=== PATIENT | male | born 1955 | race Caucasian/White ===

== ENCOUNTER 2018-03-24 12:59 | Inpatient (IN) | payer OTHER ==
[2018-03-24 14:14] LABS: Basophils % (A) 0 %; Eosinophils % (A) 0 %; HGB 17.2 gm/dL (13.0-17.5); Lymphocytes # (A) 0.6 k/uL (1.0-4.8); Lymphocytes % (A) 4 %; MCH 29.5 pg (25.0-35.0); MCV 89.4 fL (80.0-100.0); Mean Platelet Volume 7.9; Monocytes # (A) 0.7 k/uL (0-1.0); Monocytes % (A) 5 %; Neutrophils # (A) 14.2 k/uL (1.3-7.7); Neutrophils % (A) 90 %; Platelet Count 245 k/uL (150-450); RBC 5.81 m/uL (4.30-5.90); RDW 13.3 % (11.5-15.5); WBC 15.7 k/uL (3.8-10.6)
[2018-03-24 14:16] LABS: Appearance,Urine Cloudy (Clear); Bilirubin,Urine Negative (Negative); Blood,Urine Large (Negative); Color,Urine Dark Brown; Glucose,Urine (UA) Negative (Negative); Ketones,Urine Trace (Negative); Leukocyte Esterase,Urine Negative (Negative); Mucus,Urine Occasional /hpf; Nitrite,Urine Negative (Negative); Protein,Urine 1+ (Negative); RBC,Urine >182 /hpf (0-5); Specific Gravity,Urine 1.026 (1.001-1.035); Urobilinogen,Urine <2.0 mg/dL (<2.0); WBC,Urine 16 /hpf (0-5)
[2018-03-24 14:23] LABS: Albumin 4.6 g/dL (3.5-5.0); Calcium 9.9 mg/dL (8.4-10.2); Potassium 4.7 mmol/L (3.5-5.1); Total Bilirubin 0.6 mg/dL (0.2-1.3); Total Protein 7.8 g/dL (6.3-8.2)
[2018-03-24] MEDS ORDERED: KETOROLAC 30 MG/ML 1 ML VIAL IVP STA (15:21)
[2018-03-24] MEDS ORDERED: METOCLOPRAMIDE 5 MG/ML 2 ML VIAL IVP STA (15:21)
[2018-03-24] MEDS ORDERED: SODIUM CHLORIDE 0.9% 500 ML IV STA (15:22)
--- NOTE | 2018-03-24 15:24 | ED ---
General Adult HPI - General Chief complaint: Abdominal Pain Stated complaint: Right flank pain Time Seen by Provider: 03/24/18 15:18 Source: patient, RN notes reviewed Mode of arrival: ambulatory Limitations: no limitations - History of Present Illness Initial comments: Patient is a pleasant 62-year-old male presenting to the emergency Department with right posterior flank pain. Onset was sudden this morning. Discomfort has been steady and somewhat severe. Patient has had some chills. Patient has had nausea however no vomiting. Patient does feel slightly constipated. Patient did take a laxative prior to onset of symptoms. No fevers. No dysuria or hematuria. No history of similar symptoms previously. Discomfort is not positional. - Related Data Home Medications Medication Instructions Recorded Confirmed Aspirin [Adult Low Dose Aspirin EC] 81 mg PO HS 03/24/18 03/24/18 Finasteride [Propecia] 1 mg PO DAILY 03/24/18 03/24/18 Allergies Allergy/AdvReac Type Severity Reaction Status Date / Time shellfish derived [Shellfish] Allergy Rash/Hives Verified 03/24/18 16:14 WINE AdvReac Unknown Uncoded 03/24/18 16:14 Review of Systems ROS Statement: Those systems with pertinent positive or pertinent negative responses have been documented in the HPI. ROS Other: All systems not noted in ROS Statement are negative. Constitutional: Reports: chills. Denies: fever Eyes: Denies: eye pain ENT: Denies: ear pain Respiratory: Denies: cough, dyspnea Cardiovascular: Denies: chest pain Endocrine: Denies: fatigue Gastrointestinal: Reports: nausea. Denies: abdominal pain, vomiting Genitourinary: Denies: dysuria, hematuria Musculoskeletal: Reports: back pain (Right flank) Skin: Denies: rash Neurological: Denies: weakness Past Medical History Past Medical History: No Reported History History of Any Multi-Drug Resistant Organisms: None Reported Past Surgical History: Adenoidectomy, Tonsillectomy Past Psychological History: No Psychological Hx Reported Smoking Status: Never smoker Past Alcohol Use History: None Reported Past Drug Use History: None Reported General Exam Limitations: no limitations General appearance: alert, in no apparent distress Head exam: Present: atraumatic Eye exam: Present: normal appearance, PERRL ENT exam: Present: normal oropharynx Neck exam: Present: normal inspection Respiratory exam: Present: normal lung sounds bilaterally Cardiovascular Exam: Present: regular rate, normal rhythm Expanded Peripheral pulses: 2+: Posterior Tibialis (R), Posterior Tibialis (L) GI/Abdominal exam: Present: soft. Absent: tenderness Extremities exam: Present: normal inspection. Absent: pedal edema, calf tenderness Back exam: Present: normal inspection. Absent: tenderness, CVA tenderness (R) Neurological exam: Present: alert Psychiatric exam: Present: normal affect, normal mood Skin exam: Present: normal color Course Vital Signs 03/24/18 13:28 Temperature 98.2 F Pulse Rate 79 Respiratory 20 Rate Blood Pressure 154/79 O2 Sat by Pulse 97 Oximetry Medical Decision Making - Medical Decision Making Patient reevaluated and resting comfortably in bed. Patient updated on results and plan. Dr. Keith has been paged for admission for hospital call. - Lab Data Result diagrams: 03/24/18 13:50 03/24/18 13:50 Lab Results 03/24/18 03/24/18 03/24/18 Range/Units 13:50 13:50 13:50 WBC 15.7 H (3.8-10.6) k/uL RBC 5.81 (4.30-5.90) m/uL Hgb 17.2 (13.0-17.5) gm/dL Hct 52.0 (39.0-53.0) % MCV 89.4 (80.0-100.0) fL MCH 29.5 (25.0-35.0) pg MCHC 33.0 (31.0-37.0) g/dL RDW 13.3 (11.5-15.5) % Plt Count 245 (150-450) k/uL Neutrophils % 90 % Lymphocytes % 4 % Monocytes % 5 % Eosinophils % 0 % Basophils % 0 % Neutrophils # 14.2 H (1.3-7.7) k/uL Lymphocytes # 0.6 L (1.0-4.8) k/uL Monocytes # 0.7 (0-1.0) k/uL Eosinophils # 0.0 (0-0.7) k/uL Basophils # 0.0 (0-0.2) k/uL Sodium 140 (137-145) mmol/L Potassium 4.7 (3.5-5.1) mmol/L Chloride 104 (98-107) mmol/L Carbon Dioxide 28 (22-30) mmol/L Anion Gap 8 mmol/L BUN 21 H (9-20) mg/dL Creatinine 1.17 (0.66-1.25) mg/dL Est GFR (CKD-EPI)AfAm 78 (>60 ml/min/1.73 sqM) Est GFR (CKD-EPI)NonAf 67 (>60 ml/min/1.73 sqM) Glucose 125 H (74-99) mg/dL Calcium 9.9 (8.4-10.2) mg/dL Total Bilirubin 0.6 (0.2-1.3) mg/dL AST 29 (17-59) U/L ALT 38 (21-72) U/L Alkaline Phosphatase 63 (38-126) U/L Total Protein 7.8 (6.3-8.2) g/dL Albumin 4.6 (3.5-5.0) g/dL Amylase 60 (30-110) U/L Lipase 97 (23-300) U/L Urine Color Dark Brown Urine Appearance Cloudy (Clear) Urine pH 5.0 (5.0-8.0) Ur Specific Pyatt 1.026 (1.001-1.035) Urine Protein 1+ H (Negative) Urine Glucose (UA) Negative (Negative) Urine Ketones Trace H (Negative) Urine Blood Large H (Negative) Urine Nitrite Negative (Negative) Urine Bilirubin Negative (Negative) Urine Urobilinogen <2.0 (<2.0) mg/dL Ur Leukocyte Esterase Negative (Negative) Urine RBC >182 H (0-5) /hpf Urine WBC 16 H (0-5) /hpf Urine WBC Clumps Occasional H (None) /hpf Urine Mucus Occasional H (None) /hpf - Radiology Data Radiology results: image reviewed (Computed tomography scan abdomen and pelvis does show 4 mm stone in the right UVJ. No addition there is diverticulitis with abscess formation up to 2 cm.) Disposition Clinical Impression: Ureterolithiasis, Sigmoid diverticulitis Disposition: ADMITTED IP TO THIS HOSP Is patient prescribed a controlled substance at d/c from ED?: No Referrals: None,Stated [Primary Care Provider] - 1-2 days Decision Time: 16:18
--- NOTE | 2018-03-24 15:58 | CT ---
EXAMINATION TYPE: CT abdomen pelvis wo con DATE OF EXAM: 03/24/2018 HISTORY: Right flank pain CT DLP: 1213 mGycm. Automated Exposure Control for Dose Reduction was Utilized. TECHNIQUE: CT scan of the abdomen and pelvis is performed without oral or IV contrast. COMPARISON: NONE FINDINGS: Within the limitations of a non-contrast study, the following observations are made. LUNG BASES: Dependent atelectasis right lung base is present. Focal coronary artery calcification LAD axial image 1 LIVER/GB: No significant abnormality is appreciated. PANCREAS: No significant abnormality is seen. SPLEEN: No significant abnormality is seen. ADRENALS: No significant abnormality is seen. KIDNEYS: There is 5 mm calculus lower pole level left kidney on axial image 78. Nonspecific subcentim eter hyperdense focus could reflect tiny hemorrhagic cyst mid pole level left kidney axial image 75 t o small to definitively characterize. There is mild right-sided pyelocaliectasis and diffuse hydroure ter due to 4 mm calculus at left UVJ axial image 150. No left-sided hydronephrosis is present. A few scattered pelvic phleboliths are present. BOWEL: Slightly suboptimal evaluation of bowel due to lack of enteric contrast. There is no suspiciou s small or large bowel dilatation. Normal-appearing appendix is seen inferiorly from base of cecum. D iverticula are seen in the left and sigmoid colon. There is moderate fat stranding in the anterior mi d abdomen at level of proximal to mid mid sigmoid colon consistent with acute diverticulitis. In samuel tion there is thick walled fluid collection with air-fluid level with intraluminal component measurin g roughly 2.1 x 1.0 cm coronal image 48 consistent with small peridiverticular abscess. GENITAL ORGANS: Some central zone calcifications are seen in nonenlarged prostate gland. LYMPH NODES: No greater than 1cm abdominal or pelvic lymph nodes are appreciated. OSSEOUS STRUCTURES: There is moderate multilevel disc space narrowing and vacuum disc phenomenon thro ughout the lumbar spine with posterior spur disc complexes effacing anterior thecal sac at several le vels. OTHER: There is large left inguinal hernia containing fat and tiny portion of sigmoid colon. There is smaller fat-containing right inguinal hernia. 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 IMPRESSION: 1. There is 4 mm calculus at right UVJ causing mild right-sided hydronephrosis. 2. There is moderate acute diverticulitis centered in the anterior mid pelvis at level of proximal to mid sigmoid colon with small adjacent peridiverticular abscess noted.
[2018-03-24] MEDS ORDERED: HYDROmorphone 1 MG/ML 1 ML SYRINGE IVP PRN (16:18)
[2018-03-24] MEDS ORDERED: NALOXONE 0.4 MG/ML 1 ML VIAL IV PRN (16:18)
[2018-03-24] MEDS ORDERED: LEVOFLOXACIN 750MG-D5W PMX 750 MG in DEXTROSE/WATER 1 150ML.BAG IVPB STA (16:21)
[2018-03-24] MEDS ORDERED: LEVOFLOXACIN 750MG-D5W PMX 750 MG in DEXTROSE/WATER 1 150ML.BAG IVPB SCH (16:30)
[2018-03-24] MEDS: SODIUM CHLORIDE 0.9% 1,000 ML IV SCH (16:38)
[2018-03-24] MEDS: metroNIDAZOLE-NS PMX 500 MG in SALINE 1 100ML.BAG IVPB SCH (20:03)
[2018-03-24 20:22] VITALS: BMI 30.2
[2018-03-24] MEDS: PANTOPRAZOLE 40 MG/10 ML VIAL IV SCH (21:36)
[2018-03-24] MEDS ORDERED: TEMAZEPAM 15 MG CAP PO PRN (23:09)
[2018-03-24] MEDS ORDERED: HYDROcodone/APAP 5-325MG 1 EACH TAB PO PRN (23:09)
[2018-03-24] MEDS ORDERED: ALPRAZolam 0.25 MG TAB PO PRN (23:09)
[2018-03-24] MEDS ORDERED: ACETAMINOPHEN TAB 500 MG TAB PO PRN (23:09)
[2018-03-25] MEDS: metroNIDAZOLE-NS PMX 500 MG in SALINE 1 100ML.BAG IVPB SCH ×5 (00:05→23:23)
[2018-03-25] MEDS: PIPERACILLIN-TAZOBACTAM 3.375 GM in DEXTROSE/WATER 1 50ML.BAG IVPB SCH ×4 (01:08→23:23)
[2018-03-25] MEDS: SODIUM CHLORIDE 0.9% 1,000 ML IV SCH ×4 (06:08→23:23)
--- NOTE | 2018-03-25 07:57 | HP ---
HISTORY AND PHYSICAL DATE OF ADMISSION: 03/24/2018 CHIEF COMPLAINT: Abdominal pain and right flank pain. HISTORY OF PRESENT ILLNESS: This 62-year-old gentleman with a past medical history of no significant medical history medical illnesses excluding adenoidectomy and tonsillectomy, from [place]. The patient was apparently camping and the patient had right flank pain and the patient came to [facility] and admitted for further evaluation and treatment. The patient initially had right posterior pain. It was sudden onset. The patient was concerned about urolithiasis. The CT scan of the abdomen and pelvis was done which showed a 4 mm calculus in the right UV junction causing right-sided hydronephrosis, also moderate acute diverticulitis in the anterior mid pelvis level of approximately mid sigmoid colon with small adjacent peridiverticular abscess noted. The patient admitted for further evaluation and treatment. There is no history of fever, rigors or chills. No history of headache, loss consciousness or seizures at this time. PAST MEDICAL HISTORY: Adenoidectomy, tonsillectomy. MEDICATIONS: Prior to admission: 1. Propecia 1 mg p.o. daily. 2. Ecotrin 81 mg q.h.s. ALLERGIES: SHELLFISH AND WINE. FAMILY HISTORY: History of diabetes in the family. SOCIAL HISTORY: No history of smoking. Occasional alcohol intake. REVIEW OF SYSTEMS: ENT: No diminished vision, no diminished hearing. CARDIOVASCULAR: No angina or palpitations. RESPIRATION: No cough or hemoptysis. GI as mentioned earlier. as mentioned earlier. CENTRAL NERVOUS SYSTEM: No numbness or weakness. ALLERGY/IMMUNOLOGY: As mentioned earlier. MUSCULOSKELETAL: As mentioned earlier. HEMATOLOGY/ONCOLOGY: No history of anemia. ENDOCRINE: No history of diabetes or hypothyroidism. CONSTITUTIONAL: As mentioned. Dermatology: Negative. Rheumatology: Negative. Psychiatry: As mentioned earlier. PHYSICAL EXAMINATION: Alert, oriented times three, pulse 99, blood pressure 130/70, respiration 18, temperature 98.2, pulse ox 98 percent on room air. HEENT: Conjunctivae normal. Oral mucosa moist. Neck is no jugular venous distention. No carotid bruit. No lymph node enlargement. Cardiovascular systems: S1, S2 muffled. Respirations: Breath sounds diminished in the bases. No rhonchi and no crackles. ABDOMEN: Soft, nontender. No mass palpable. No guarding. No rigidity. LEGS no edema. No swelling. NERVOUS SYSTEM: Higher functions as mentioned earlier. Moves all four extremities. No focal motor or sensory deficits. Lymphatics: No lymph nodes palpable in the neck, axillae or groin. Skin: No ulcer, rash or bleeding. LABS: WBC 15.7 and glucose 125. UA noted. ASSESSMENT: 1. Acute diverticulitis with small peridiverticular abscess. 2. Increased WBC. 3. 4 mm calculus in the right UV junction with right-sided mild hydronephrosis. 4. Increased random blood sugar. 5. Increased WBC. 6. History of adenoidectomy, tonsillectomy. RECOMMENDATIONS AND DISCUSSION: In this 62-year-old gentleman who presented with multiple complex medical issues, we will monitor the patient closely. Continue the current medications. Continue symptomatic treatment. Otherwise, at this time, I recommend broad-spectrum IV antibiotics and surgical consultation. We will continue the pain medication. DVT prophylaxis. Continue to monitor. Guarded prognosis because of multiple complex medical issues. Further recommendations to follow. We will monitor the white count serially. MMODL / IJN: [id number] /
[2018-03-25 08:02] LABS: Basophils % (A) 0 %; Eosinophils % (A) 0 %; HCT 43.4 % (39.0-53.0); HGB 14.7 gm/dL (13.0-17.5); Lymphocytes # (A) 0.4 k/uL (1.0-4.8); Lymphocytes % (A) 3 %; MCH 30.3 pg (25.0-35.0); MCHC 33.9 g/dL (31.0-37.0); MCV 89.4 fL (80.0-100.0); Mean Platelet Volume 7.8; Monocytes # (A) 0.8 k/uL (0-1.0); Monocytes % (A) 7 %; Neutrophils # (A) 10.8 k/uL (1.3-7.7); Neutrophils % (A) 89 %; Platelet Count 180 k/uL (150-450); RBC 4.86 m/uL (4.30-5.90); RDW 13.4 % (11.5-15.5); WBC 12.1 k/uL (3.8-10.6)
[2018-03-25] MEDS: PANTOPRAZOLE 40 MG/10 ML VIAL IV SCH (08:03)
[2018-03-25] MEDS: HEPARIN SODIUM,PORCINE 5,000 UNIT/ML 1 ML VIAL SQ SCH ×2 (08:04→21:34)
[2018-03-25 08:06] LABS: Calcium 8.5 mg/dL (8.4-10.2); Potassium 4.5 mmol/L (3.5-5.1)
[2018-03-25] MEDS: HYDROmorphone 1 MG/ML 1 ML SYRINGE IVP PRN ×2 (09:36→12:25)
[2018-03-25] MEDS ORDERED: KETOROLAC 30 MG/ML 1 ML VIAL IVP PRN (11:21)
[2018-03-25] MEDS ORDERED: KETOROLAC 30 MG/ML 1 ML VIAL IVP STA (11:21)
--- NOTE | 2018-03-25 14:25 | P.GSCN ---
History of Present Illness Consult date: 03/25/18 History of present illness: The patient is a pleasant 62-year-old gentleman from [place] passing through [place] when he developed severe left ureteral colic. He presented emergency room was evaluated and found to have a 45 mm obstructing left ureterovesical scope junction calculus. He is admitted to the hospital for pain control. He continues to have discomfort requiring both Toradol and morphine. This is the first stone the patient is ever had. He does have another stone in the left lower pole the kidney. There is no other urologic history. There is no fever Or chills and his urine is not infected. There is a question whether he has diverticulitis. Review of Systems All systems: negative Past Medical History Past Medical History: No Reported History History of Any Multi-Drug Resistant Organisms: None Reported Past Surgical History: Adenoidectomy, Tonsillectomy Past Psychological History: No Psychological Hx Reported Smoking Status: Never smoker Past Alcohol Use History: None Reported Past Drug Use History: None Reported - Past Family History Mother Family Medical History: Diabetes Mellitus Father Family Medical History: Diabetes Mellitus Medications and Allergies Home Medications Medication Instructions Recorded Confirmed Type Aspirin [Adult Low Dose Aspirin EC] 81 mg PO HS 03/24/18 03/24/18 History Finasteride [Propecia] 1 mg PO DAILY 03/24/18 03/24/18 History Allergies Allergy/AdvReac Type Severity Reaction Status Date / Time shellfish derived [Shellfish] Allergy Rash/Hives Verified 03/24/18 16:14 WINE AdvReac Unknown Uncoded 03/24/18 16:14 Surgical - Exam Vital Signs Temp Pulse Resp BP Pulse Ox 98.2 F 79 20 154/79 97 03/24/18 13:28 03/24/18 13:28 03/24/18 13:28 03/24/18 13:28 03/24/18 13:28 - General well developed, well nourished, moderate distress - Eyes PERRL - ENT no hearing loss - Neck no masses, trachea midline - Respiratory normal expansion, normal respiratory effort - Cardiovascular Rhythm: regular - Abdomen Abdomen: soft, non tender - Genitourinary normal penis with no external lesions, testicles present - Neurologic normal coordination, normal sensation - Musculoskeletal normal gait, normal posture - Psychiatric oriented to time, oriented to person, oriented to place, speech is normal, memory intact Results - Labs 03/25/18 07:27 03/25/18 07:27 Abnormal Lab Results - Last 24 Hours (Table) 03/24/18 03/24/18 03/25/18 Range/Units 13:50 13:50 07:27 WBC 15.7 H 12.1 H (3.8-10.6) k/uL Neutrophils # 14.2 H 10.8 H (1.3-7.7) k/uL Lymphocytes # 0.6 L 0.4 L (1.0-4.8) k/uL BUN 21 H (9-20) mg/dL Creatinine (0.66-1.25) mg/dL Glucose 125 H (74-99) mg/dL 03/25/18 Range/Units 07:27 WBC (3.8-10.6) k/uL Neutrophils # (1.3-7.7) k/uL Lymphocytes # (1.0-4.8) k/uL BUN (9-20) mg/dL Creatinine 1.71 H (0.66-1.25) mg/dL Glucose 108 H (74-99) mg/dL Diabetes panel 03/24/18 03/25/18 Range/Units 13:50 07:27 Sodium 140 138 (137-145) mmol/L Potassium 4.7 4.5 (3.5-5.1) mmol/L Chloride 104 107 (98-107) mmol/L Carbon Dioxide 28 24 (22-30) mmol/L BUN 21 H 19 (9-20) mg/dL Creatinine 1.17 1.71 H (0.66-1.25) mg/dL Glucose 125 H 108 H (74-99) mg/dL Calcium 9.9 8.5 (8.4-10.2) mg/dL AST 29 (17-59) U/L ALT 38 (21-72) U/L Alkaline Phosphatase 63 (38-126) U/L Total Protein 7.8 (6.3-8.2) g/dL Albumin 4.6 (3.5-5.0) g/dL Calcium panel 03/24/18 03/25/18 Range/Units 13:50 07:27 Calcium 9.9 8.5 (8.4-10.2) mg/dL Albumin 4.6 (3.5-5.0) g/dL Pituitary panel 03/24/18 03/25/18 Range/Units 13:50 07:27 Sodium 140 138 (137-145) mmol/L Potassium 4.7 4.5 (3.5-5.1) mmol/L Chloride 104 107 (98-107) mmol/L Carbon Dioxide 28 24 (22-30) mmol/L BUN 21 H 19 (9-20) mg/dL Creatinine 1.17 1.71 H (0.66-1.25) mg/dL Glucose 125 H 108 H (74-99) mg/dL Calcium 9.9 8.5 (8.4-10.2) mg/dL Adrenal panel 03/24/18 03/25/18 Range/Units 13:50 07:27 Sodium 140 138 (137-145) mmol/L Potassium 4.7 4.5 (3.5-5.1) mmol/L Chloride 104 107 (98-107) mmol/L Carbon Dioxide 28 24 (22-30) mmol/L BUN 21 H 19 (9-20) mg/dL Creatinine 1.17 1.71 H (0.66-1.25) mg/dL Glucose 125 H 108 H (74-99) mg/dL Calcium 9.9 8.5 (8.4-10.2) mg/dL Total Bilirubin 0.6 (0.2-1.3) mg/dL AST 29 (17-59) U/L ALT 38 (21-72) U/L Alkaline Phosphatase 63 (38-126) U/L Total Protein 7.8 (6.3-8.2) g/dL Albumin 4.6 (3.5-5.0) g/dL - Imaging CT scan - abdomen: report reviewed, image reviewed CT scan - pelvis: report reviewed, image reviewed Assessment and Plan Assessment: Impression: Left ureteral calculus with obstruction and colic. Left renal stone. Recommendations: The status of his kidney and stone have been discussed at length. Options including spontaneous passage ureteroscopic stone manipulation have been discussed. Since [place] would like something to be done. He will try to pass stones overnight. If this fails then he'll be set up for a stone manipulation tomorrow. This is been discussed at length with the patient.
--- NOTE | 2018-03-25 15:44 | P.GSCN ---
History of Present Illness Consult date: 03/25/18 Reason for Consult: Left-sided abdominal pain and flank pain History of present illness: This is a 62-year-old male who is vacationing in [place]. Patient lives in [place]. He is currently on a 10 week trip. The patient was camping at the [place] in [place]. Patient states that he developed some left-sided abdominal pain. Patient underwent CAT scan emergency room. He is found have a left ureteral stone as well as diverticulitis with possible abscess. Patient states he has minimal pain in his abdomen. He states his pain is mainly in his back. Past Medical History Past Medical History: No Reported History History of Any Multi-Drug Resistant Organisms: None Reported Past Surgical History: Adenoidectomy, Tonsillectomy Past Psychological History: No Psychological Hx Reported Smoking Status: Never smoker Past Alcohol Use History: None Reported Past Drug Use History: None Reported - Past Family History Mother Family Medical History: Diabetes Mellitus Father Family Medical History: Diabetes Mellitus Medications and Allergies Home Medications Medication Instructions Recorded Confirmed Type Aspirin [Adult Low Dose Aspirin EC] 81 mg PO HS 03/24/18 03/24/18 History Finasteride [Propecia] 1 mg PO DAILY 03/24/18 03/24/18 History Allergies Allergy/AdvReac Type Severity Reaction Status Date / Time shellfish derived [Shellfish] Allergy Rash/Hives Verified 03/24/18 16:14 WINE AdvReac Unknown Uncoded 03/24/18 16:14 Surgical - Exam Vital Signs Temp Pulse Resp BP Pulse Ox 98.2 F 79 20 154/79 97 03/24/18 13:28 03/24/18 13:28 03/24/18 13:28 03/24/18 13:28 03/24/18 13:28 - General well developed, no distress - Eyes PERRL - ENT normal pinna - Neck no masses - Respiratory normal expansion - Cardiovascular Rhythm: regular - Abdomen Minimal left lower quadrant tenderness. There is no rebound or guarding. Abdomen: soft Results - Labs 03/25/18 07:27 03/25/18 07:27 Abnormal Lab Results - Last 24 Hours (Table) 03/25/18 03/25/18 Range/Units 07:27 07:27 WBC 12.1 H (3.8-10.6) k/uL Neutrophils # 10.8 H (1.3-7.7) k/uL Lymphocytes # 0.4 L (1.0-4.8) k/uL Creatinine 1.71 H (0.66-1.25) mg/dL Glucose 108 H (74-99) mg/dL Diabetes panel 03/25/18 Range/Units 07:27 Sodium 138 (137-145) mmol/L Potassium 4.5 (3.5-5.1) mmol/L Chloride 107 (98-107) mmol/L Carbon Dioxide 24 (22-30) mmol/L BUN 19 (9-20) mg/dL Creatinine 1.71 H (0.66-1.25) mg/dL Glucose 108 H (74-99) mg/dL Calcium 8.5 (8.4-10.2) mg/dL Calcium panel 03/25/18 Range/Units 07:27 Calcium 8.5 (8.4-10.2) mg/dL Pituitary panel 03/25/18 Range/Units 07:27 Sodium 138 (137-145) mmol/L Potassium 4.5 (3.5-5.1) mmol/L Chloride 107 (98-107) mmol/L Carbon Dioxide 24 (22-30) mmol/L BUN 19 (9-20) mg/dL Creatinine 1.71 H (0.66-1.25) mg/dL Glucose 108 H (74-99) mg/dL Calcium 8.5 (8.4-10.2) mg/dL Adrenal panel 03/25/18 Range/Units 07:27 Sodium 138 (137-145) mmol/L Potassium 4.5 (3.5-5.1) mmol/L Chloride 107 (98-107) mmol/L Carbon Dioxide 24 (22-30) mmol/L BUN 19 (9-20) mg/dL Creatinine 1.71 H (0.66-1.25) mg/dL Glucose 108 H (74-99) mg/dL Calcium 8.5 (8.4-10.2) mg/dL - Imaging US - abdomen: report reviewed (Sigmoid colon diverticulitis with fat stranding suggestive of inflammation and possible abscess. Right sided ureteral calculus causing hydronephrosis) Assessment and Plan Assessment: Diverticulitis. Patient should continue IV antibiotic. Right ureteral calculus. Patient will be evaluated by Dr. Fregoso in undergo possible stone manipulation.
--- NOTE | 2018-03-25 18:26 | PN ---
PROGRESS NOTE DATE OF SERVICE: 03/25/2018. This 62-year-old gentleman admitted with nephrolithiasis also had features of acute sigmoid diverticulitis with diverticular abscess on the CT scan. Surgery, Dr. Vallejo is following the patient and recommends IV antibiotics. Dr. Vega for urology has seen the patient and recommended trying to passed a stone tonight. If fails, stone manipulation tomorrow. No chest pain. No palpitations. No fever. EXAM: Alert and oriented x3. Pulse is 98, blood pressure 118/67, respirations 16, temperature 98 degrees, pulse ox 94% on room air. HEENT: Conjunctivae normal. NECK: No jugular venous distention. CARDIOVASCULAR: S1, S2 muffled. RESPIRATORY: Breath sounds diminished in the bases. No rhonchi. No crackles. ABDOMEN: Soft. Diffuse tenderness. LEGS: No edema. NERVOUS SYSTEM: Nonfocal. LABS: WBC is 12.1 and creatinine is 1.71. ASSESSMENT: 1. Acute diverticulitis with a small peridiverticular abscess. 2. Acute urolithiasis, right. 3. Increased creatinine with mild acute renal failure. 4. Increased WBC. 5. 4-cm calculus in the right ureterovesical junction with right-sided mild hydronephrosis, present on admission. 6. Increased random blood sugar. 7. Increased WBC. 8. History of adenoidectomy, tonsillectomy. RECOMMENDATIONS AND DISCUSSION: Recommend to continue current medical management, continue with monitoring and symptomatic treatment. Otherwise as this time, I would recommend broad-spectrum IV antibiotics. See orders for further details. Further recommendations to follow. Toradol has been added. MMODL / IJN: [id number] /
[2018-03-26] MEDS: metroNIDAZOLE-NS PMX 500 MG in SALINE 1 100ML.BAG IVPB SCH ×3 (05:53→16:33)
--- NOTE | 2018-03-26 07:28 | XR ---
Abdomen HISTORY: Preop for renal calculi Frontal view of the abdomen on 3 images correlated to prior CT 03/24/2018 Lung bases are clear. There are calcifications noted superimposed over the lower pole of the left kid sri measuring approximately 6 mm, and possibly the level of the distal right ureter measuring 4 mm. S cattered phleboliths are present within the pelvis. Degenerative disc changes are present in the visu alized spine. No evident pneumoperitoneum or bowel obstruction. IMPRESSION: Distal right ureteral calculus, left-sided nephrolithiasis.
--- NOTE | 2018-03-26 08:12 | P.PN ---
Subjective Progress Note Date: 03/26/18 The patient does not have any more pain. He did not pass his stone overnight. The KUB this morning still shows calcifications in the region of the right distal ureter. Upon reviewing the CAT scan the stone was in the right distal ureter. My notes stated the left incorrectly. Discussion with the patient confirms right distal ureteral colic. I discussed the choice and with the patient. The options are to do nothing versus perform cystoscopy and retrograde pyelogram and possible stone manipulation. Again since [place] out [place] own community we will proceed with cystoscopy retrograde pyelogram since we do not have a stone and hand. If he passes a stone this morning we will cancel the procedure if not we'll do at minimum retrograde pyelogram to clarify whether he has a stone in the ureter in order to clarify whether he would be safe to proceed with his trip. He concurs and desires this plan of action. Objective - Vital Signs Vital signs: Vital Signs Temp 98.6 F 03/26/18 06:14 Pulse 66 03/26/18 06:14 Resp 16 03/26/18 06:14 BP 145/89 03/26/18 06:14 Pulse Ox 97 03/26/18 06:14 Intake & Output 03/25/18 03/26/18 03/26/18 18:59 06:59 18:59 Intake Total 990 1110 Balance 990 1110 Intake: Intake, IV Titration 990 1110 Amount Piperacillin-Tazobactam 3 50 50 .375 gm In Dextrose/Water 1 50ml.bag @ 12.5 mls/hr IVPB Q8HR RAMEZ Rx#: [id number] Sodium Chloride 0.9% 1, 840 960 000 ml @ 120 mls/hr IV . Q8H20M R[facility]Z Rx#:[id number] metroNIDAZOLE-NS PMX 500 100 100 mg In Saline 1 100ml.bag @ 100 mls/hr IVPB Q6HR RAMEZ Rx#:[id number] Other: # Voids 2 - Labs CBC & Chem 7: 03/25/18 07:27 03/25/18 07:27 Labs: Microbiology - Last 24 Hours (Table) 03/24/18 16:54 Blood Culture - Preliminary Blood No Growth after 24 hours 03/25/18 08:10 Urine Culture - Preliminary Urine,Clean Catch
[2018-03-26 08:29] LABS: Basophils % (A) 0 %; Eosinophils % (A) 0 %; HCT 45.3 % (39.0-53.0); HGB 14.5 gm/dL (13.0-17.5); Lymphocytes # (A) 0.9 k/uL (1.0-4.8); Lymphocytes % (A) 10 %; MCH 29.2 pg (25.0-35.0); MCHC 32.1 g/dL (31.0-37.0); Mean Platelet Volume 7.4; Monocytes # (A) 0.7 k/uL (0-1.0); Monocytes % (A) 8 %; Neutrophils # (A) 7.2 k/uL (1.3-7.7); Neutrophils % (A) 80 %; Platelet Count 166 k/uL (150-450); RBC 4.97 m/uL (4.30-5.90); RDW 13.7 % (11.5-15.5)
[2018-03-26 08:41] LABS: Calcium 8.6 mg/dL (8.4-10.2)
[2018-03-26] MEDS: PANTOPRAZOLE 40 MG/10 ML VIAL IV SCH (08:53)
[2018-03-26] MEDS: HEPARIN SODIUM,PORCINE 5,000 UNIT/ML 1 ML VIAL SQ SCH ×2 (08:53→21:22)
[2018-03-26] MEDS: PIPERACILLIN-TAZOBACTAM 3.375 GM in DEXTROSE/WATER 1 50ML.BAG IVPB SCH ×2 (08:53→17:52)
--- NOTE | 2018-03-26 11:58 | P.PN ---
Subjective Progress Note Date: 03/26/18 62-year-old male being seen. Patient is being scheduled by urology for a cystoscopy retrograde pyelogram. Patients being followed by surgical service for left lower quadrant pain. Ultrasound of the abdomen showed sigmoid colon diverticulitis possible abscess with a right side ureter calculus causing hydronephrosis white count this morning 9 electrolytes within normal limits currently IV Zosyn and Flagyl Objective - Vital Signs Vital signs: Vital Signs Temp 98.6 F 03/26/18 06:14 Pulse 66 03/26/18 08:00 Resp 16 03/26/18 08:00 BP 145/89 03/26/18 06:14 Pulse Ox 97 03/26/18 06:14 Intake & Output 03/25/18 03/26/18 03/26/18 18:59 06:59 18:59 Intake Total 990 1110 Balance 990 1110 Intake: Intake, IV Titration 990 1110 Amount Piperacillin-Tazobactam 3 50 50 .375 gm In Dextrose/Water 1 50ml.bag @ 12.5 mls/hr IVPB Q8HR RAMEZ Rx#: [id number] Sodium Chloride 0.9% 1, 840 960 000 ml @ 120 mls/hr IV . Q8H20M RAMEZ Rx#:[id number] metroNIDAZOLE-NS PMX 500 100 100 mg In Saline 1 100ml.bag @ 100 mls/hr IVPB Q6HR RAMEZ Rx#:[id number] Other: Voiding Method Toilet # Voids 2 - Exam Physical exam Abdomen soft nondistended states the left lower quadrant pain improving passing gas no stool no nausea no vomiting - Labs CBC & Chem 7: 03/26/18 07:32 03/26/18 07:32 Labs: Abnormal Lab Results - Last 24 Hours (Table) 03/26/18 03/26/18 Range/Units 07:32 07:32 Lymphocytes # 0.9 L (1.0-4.8) k/uL Chloride 108 H (98-107) mmol/L Creatinine 1.89 H (0.66-1.25) mg/dL Microbiology - Last 24 Hours (Table) 03/24/18 16:54 Blood Culture - Preliminary Blood No Growth after 24 hours 03/25/18 08:10 Urine Culture - Preliminary Urine,Clean Catch Assessment and Plan Assessment: Impression Present on admission left-sided abdominal pain with a CAT scan of the abdomen pelvis suggestive of diverticulitis possible abscess Present on admission left-sided abdominal pain suspect due to left urethral stone Right side ureter calculus causing hydronephrosis Present on admission leukocytosis suspect due to diverticulitis Plan Continue IV antibiotics Zosyn and Flagyl as ordered Pain control IV fluid for hydration Continue recommendations by urology DVT and GI prophylaxis will follow with you The above impression and plan of care have been discussed and directed by signing physician. Kristi Florentino nurse practitioner acting as scribe for signing physician.
[2018-03-26] MEDS ORDERED: IV FLUID CONTINUATION 1,000 ML IV ONE (12:41)
[2018-03-26] MEDS ORDERED: fentaNYL (PF) 50 MCG/ML 2 ML AMP ONE (13:53)
[2018-03-26] MEDS ORDERED: MIDAZOLAM 2 MG/2 ML VIAL ONE (13:53)
[2018-03-26] MEDS ORDERED: PROPOFOL 10 MG/ML 20 ML VIAL IV ONE (13:53)
[2018-03-26] MEDS ORDERED: SUCCINYLCHOLINE CHLORIDE 100 MG/5 ML SYR IV ONE (13:53)
[2018-03-26] MEDS ORDERED: LIDOCAINE 1% INJ 10MG/ML (20 ML MDV) ONE (13:53)
[2018-03-26] MEDS ORDERED: IOPAMIDOL-370 50ML BTL IRRIGATION ONE (14:10)
[2018-03-26] MEDS ORDERED: LACTATED RINGERS 1,000 ML IV ONE (14:16)
--- NOTE | 2018-03-26 14:31 | P.OP ---
Date of Procedure: 03/26/18 Preoperative Diagnosis: Right ureteral stone Postoperative Diagnosis: Same Procedure(s) Performed: Cystoscopy, right retrograde pyelogram, right ureteroscopy laser lithotripsy and stone basketing Anesthesia: JESSIE Surgeon: [place] Estimated Blood Loss (ml): 0 Pathology: other (Stone) Condition: stable Disposition: PACU Indications for Procedure: The patient is a 62-year-old gentleman who was traveling from [place] out [place] on a 10 week tour. He began passing a ureteral calculus and an adherent [facility] with acute ureteral colic. He has a 4 mm distal ureteral stone that he hasn't passed a comes for stone manipulation Description of Procedure: The patient brought to the operating suite he is given general anesthesia. He' s placed lithotomy position with sterile prep and drape. Cystoscopy Foroblique lens and 22-Frisian sheath identifies a nonobstructing prostate. Both ureteral orifices are identified the right is inflamed and edematous the left is normal. The bladder mucosa is unremarkable. Within a cone-tipped catheter a right retrograde pyelograms performed. There is a filling defect in the intramural tunnel. Dilate the intramural tunnel with a cone-tipped catheter. I said pass a 7-Frisian miniscope to the stone. With the 365 probe I break it into smaller pieces. The larger pieces and basketed. There is not enough edema to leave a double-J catheter. The bladder is drained and the patient's awake and returned recovery in good condition. he'll be discharged home tomorrow follow- up as needed.
--- NOTE | 2018-03-26 15:04 | FL ---
Fluoroscopy HISTORY: Ureteral calculi 13 seconds fluoroscopy time supplied to the referring clinician. 1 intraoperative C-arm images docum ent the procedure. See dictated report from urology.
--- NOTE | 2018-03-26 16:03 | PN ---
PROGRESS NOTE DATE OF SERVICE: 03/26/2018. INTERVAL HISTORY: This 62-year-old gentleman who was admitted with acute diverticulitis and possibly diverticular abscess also had acute urolithiasis on the right side. Dr. Vega performed cystoscopy right retrograde pyelogram, right ureteroscopy and laser lithotripsy and stone basketing. No chest pain. No palpitations. No fever. PHYSICAL EXAM: Alert and oriented x3. Pulse 72, blood pressure 141/70, respiration 18, temp 97 degrees, pulse ox 97 percent on room air. HEENT: Conjunctivae normal. Oral mucosa moist. Neck is no jugular venous distention. No carotid bruit. No lymph node enlargement. Cardiovascular systems: S1, S2. Respiration: Breath sounds diminished in the bases. No rhonchi. No crackles. ABDOMEN: Soft. Some discomfort on the right side. Otherwise no guarding, no rigidity. No mass palpable. Legs: No edema, no swelling. Central nervous system: No focal deficits. LAB STUDIES: Hemoglobin is 14.5. ASSESSMENT: 1. Acute diverticulitis with small peridiverticular abscess, present on admission. 2. Acute urolithiasis on the right, status post cystoscopy, right retrograde pyelogram and right ureteroscopy and lithotripsy and stone basketing for right ureteral stone. 3. Increased creatinine with mild acute renal failure. 4. Increased WBC. 5. 4 cm calculus in the right ureterovesical junction and right-sided mild hydronephrosis present on admission. 6. Increased ambulation. 7. Increased WBC. 8. History of adenoidectomy and tonsillectomy. RECOMMENDATIONS AND DISCUSSION: Continue current medications, management and symptomatic treatment. Continue with the rest of medications and continue antibiotics. Increase ambulation. Follow closely with Surgery and as well as Urology. Further recommendations to follow. MMODL / IJN: [id number] /
[2018-03-26] MEDS ORDERED: HYDROmorphone 2 MG TAB PO PRN (19:12)
[2018-03-26] MEDS ORDERED: HYDROmorphone 4 MG TABLET PO PRN (19:12)
[2018-03-26] MEDS: SODIUM CHLORIDE 0.9% 1,000 ML IV SCH ×2 (19:33→21:23)
[2018-03-27] MEDS: metroNIDAZOLE-NS PMX 500 MG in SALINE 1 100ML.BAG IVPB SCH ×2 (00:29→05:14)
[2018-03-27] MEDS: PIPERACILLIN-TAZOBACTAM 3.375 GM in DEXTROSE/WATER 1 50ML.BAG IVPB SCH ×2 (01:23→07:53)
[2018-03-27] MEDS: SODIUM CHLORIDE 0.9% 1,000 ML IV SCH (05:13)
[2018-03-27 06:02] VITALS: BP 116/67; PULSE 96; RESP 16; TEMP 97.7
--- NOTE | 2018-03-27 06:33 | P.PN ---
Subjective Progress Note Date: 03/27/18 The patient tolerated the ureteroscopy and laser lithotripsy to the stone. He is feeling relatively well. From urologic standpoint he can be discharged home. Since he is from [place] and on A trip out [place] he'll follow-up as needed. He's been instructed to call me if necessary. A Card has been given. Objective - Vital Signs Vital signs: Vital Signs Temp 97.7 F 03/27/18 06:01 Pulse 96 03/27/18 06:01 Resp 16 03/27/18 06:01 BP 116/67 03/27/18 06:01 Pulse Ox 98 03/27/18 06:01 Intake & Output 03/26/18 03/26/18 03/27/18 06:59 18:59 06:59 Intake Total 2203 819 1621 Output Total 500 Balance 7361 981 0676 Intake: IV 750 Intake, IV Titration 1110 1110 Amount Piperacillin-Tazobactam 3 50 50 .375 gm In Dextrose/Water 1 50ml.bag @ 12.5 mls/hr IVPB Q8HR RAMEZ Rx#: [id number] Sodium Chloride 0.9% 1, 960 960 000 ml @ 120 mls/hr IV . Q8H20M RAMEZ Rx#:[id number] metroNIDAZOLE-NS PMX 500 100 100 mg In Saline 1 100ml.bag @ 100 mls/hr IVPB Q6HR RAMEZ Rx#:[id number] Oral 1080 Output: Urine 500 Estimated Blood Loss 0 Other: Voiding Method Toilet Toilet # Voids 2 1 - Labs CBC & Chem 7: 03/26/18 07:32 03/26/18 07:32 Labs: Abnormal Lab Results - Last 24 Hours (Table) 03/26/18 03/26/18 Range/Units 07:32 07:32 Lymphocytes # 0.9 L (1.0-4.8) k/uL Chloride 108 H (98-107) mmol/L Creatinine 1.89 H (0.66-1.25) mg/dL Microbiology - Last 24 Hours (Table) 03/24/18 16:54 Blood Culture - Preliminary Blood No Growth after 48 hours 03/25/18 08:10 Urine Culture - Final Urine,Clean Catch
[2018-03-27 07:44] LABS: Basophils % (A) 0 %; Eosinophils # (A) 0.1 k/uL (0-0.7); Eosinophils % (A) 1 %; HCT 44.4 % (39.0-53.0); HGB 14.4 gm/dL (13.0-17.5); Lymphocytes # (A) 1.3 k/uL (1.0-4.8); Lymphocytes % (A) 20 %; MCHC 32.3 g/dL (31.0-37.0); MCV 89.8 fL (80.0-100.0); Mean Platelet Volume 7.8; Monocytes # (A) 0.8 k/uL (0-1.0); Monocytes % (A) 12 %; Neutrophils # (A) 4.1 k/uL (1.3-7.7); Neutrophils % (A) 62 %; Platelet Count 193 k/uL (150-450); RBC 4.94 m/uL (4.30-5.90); RDW 13.4 % (11.5-15.5); WBC 6.6 k/uL (3.8-10.6)
[2018-03-27] MEDS: PANTOPRAZOLE 40 MG/10 ML VIAL IV SCH (07:53)
[2018-03-27] MEDS: HEPARIN SODIUM,PORCINE 5,000 UNIT/ML 1 ML VIAL SQ SCH (08:01)
[2018-03-27 08:03] LABS: Calcium 8.7 mg/dL (8.4-10.2); Potassium 3.8 mmol/L (3.5-5.1)
--- NOTE | 2018-03-27 12:04 | P.PN ---
Progress Note - Text Progress Note Date: 03/27/18 59-year-old male sitting up in a chair the plan is to be discharged today patient was being followed by surgical service for diverticulitis which did respond to IV antibiotic therapy additionally patient is being followed by urology dr riggs underwent on March 26 Cystoscopy, right retrograde pyelogram , right ureteroscopy laser lithotripsy and stone basketing patient states the abdominal discomfort has resolved. Patient okay to be discharged today with the antibiotics per the attending patient did receive information by the dietitian on diverticulosis diet The above impression and plan of care have been discussed and directed by signing physician. Kristi Florentino nurse practitioner acting as scribe for signing physician.
--- NOTE | 2018-03-27 18:31 | DS ---
DISCHARGE SUMMARY FINAL DIAGNOSES: 1. Acute diverticulosis, small peridiverticular abscess, present on admission, improved. 2. Acute urolithiasis on the right, status post cystoscopy right retrograde pyelogram, right ureteroscopy, lithotripsy and stone basketing for right ureteral stone. 3. Increased creatinine with mild acute renal failure, improved. 4. Increased WBC. 5. A 4 cm calculus in the right ureterovesical junction and right-sided mild hydronephrosis, present on admission. 6. Increased ambulation. 7. Increased WBC. 8. History of adenoidectomy and tonsillectomy. DISCHARGE DISPOSITION: The patient will be discharged in stable condition with guarded prognosis. Discharge cleared by multiple consultants. HISTORY OF PRESENT ILLNESS: This 62-year-old gentleman with past medical history of multiple medical problems, originally from [place], was camping in the local area. Patient admitted with features of abdominal pain. Acute urolithiasis on the right side was also noted and the patient also had a small peridiverticular abscess around the sigmoid and patient treated with IV antibiotics. Patient improved significantly. Urology saw the patient and performed a cystoscopy as listed above. The patient improved significantly. On exam: Vitals are stable. Cardiovascular: S1, S2. Abdomen: Soft, nontender. Nervous System: No focal deficits. The patient will be discharged in a stable condition with guarded prognosis with the following advice: 1. Diet is cardiac. 2. Activity limited until followup. 3. Follow up with primary physician in 2-3 days. 4. Follow up with Dr. Vallejo and Urology as recommended. MEDICATIONS: 1. Augmentin 875 mg p.o. b.i.d. for 1 week. 2. Multivitamins 1 p.o. daily. 3. Continue Propecia. The patient is stable, but overall prognosis guarded, which was discussed at length with the patient. Further recommendations to follow. MMODL / IJN: [id number] /
== END 2018-03-27 12:48 | disposition home or self-care (01) | DRG 669 ==
LOC: EC 12:59 → 4MS4W 16:18 → 5MS5E 18:40
PROVIDERS: ADMIT Hospitalist; ATTEND Hospitalist
PROC: BT1D1ZZ Fluoroscopy of Right Kidney, Ureter and Bladder using Low Osmolar Contrast (ICD-10-PCS; principal; 2018-03-26 07:30)
PROC: 0TC68ZZ Extirpation of Matter from Right Ureter, Via Natural or Artificial Opening Endoscopic (ICD-10-PCS; 2018-03-26 07:30)
DX: N13.2 Hydronephrosis with renal and ureteral calculous obstruction (principal); K57.20 Diverticulitis of large intestine with perforation and abscess without bleeding; K59.00 Constipation, unspecified; N17.9 Acute kidney failure, unspecified; Z79.82 Long term (current) use of aspirin; Z83.3 Family history of diabetes mellitus; Z79.899 Other long term (current) drug therapy; Z91.013 Allergy to seafood
CPT/HCPCS: 36415; 74018; 74176; 74420; 80048; 80053; 81001; 82150; 82365; 83690; 85025; 87040; 87086; 96361; 96365; 96366; 96375; 99285